=== PATIENT | male | born 1960 | race Caucasian/White ===

== ENCOUNTER 2022-04-04 08:39 | Inpatient (IN) | payer MEDICARE ==
[2022-04-04] MEDS ORDERED: Metoprolol Tartrate 5 MG/5 ML VIAL ONE ×2 (09:12→09:24)
[2022-04-04 09:17] LABS: #Eosinphils 0.1 10x3/uL (0.0-0.5); #Monocytes 0.7 10x3/uL (0.0-1.1); #Neutrophils 2.6 10x3/uL (1.5-8.4); %Basophils 0.8 % (0.0-2.0); %Eosinophils 2.2 % (0.0-6.0); %Lymphocytes 32.3 % (18.0-47.0); %Monocytes 13.8 % (0.0-10.0); %Neutrophils 50.7 % (40.0-75.0); Hemoglobin 15.6 g/dL (13.5-17.5); Mean Corpuscular Hemoglobin 31.9 pg (27.0-33.0); Mean Corpuscular Volume 96.7 fl (81.2-95.1); Mean Platelet Volume 10.6 fl (7.4-10.4); Platelet Count 234 10x3/uL (150-450); RBC Distribution Width 14.6 % (11.5-14.5); Red Blood Cell (RBC) Count 4.89 10x6/uL (4.32-5.72); White Blood Cell (WBC) Count 5.1 10x3/uL (3.5-10.5)
[2022-04-04] MEDS ORDERED: Magnesium 2 GM/50 ML BAG (IN WATER) ONE (09:19)
[2022-04-04 09:30] LABS: ALT (SGPT) 18 U/L (8-55); AST (SGOT) 16 U/L (5-34); Albumin 3.9 g/dL (3.4-4.8); Alkaline Phosphatase 48 U/L (40-110); Anion Gap 13 mmol/L (10-20); BUN (Urea Nitrogen) 17 mg/dL (8.4-25.7); Calc. Creatinine Clearance 0 mL/min (70-130); Calcium 8.8 mg/dL (7.8-10.44); Carbon Dioxide 21 mmol/L (23-31); Chloride 110 mmol/L (98-107); Estimated GFR 76; Globulin 2.7 g/dL (2.4-3.5); Glucose 109 mg/dL (80-115); Lipase 27 U/L (8-78); Potassium 4.3 mmol/L (3.5-5.1); Protein, Total 6.6 g/dL (5.8-8.1); Sodium 140 mmol/L (136-145)
[2022-04-04] MEDS ORDERED: Diltiazem 125 MG in Sodium Chloride 0.9% 100 ML IVPB SCH (10:15)
[2022-04-04] MEDS ORDERED: Acetaminophen 325 MG TAB PO PRN ×2 (11:30→21:41)
[2022-04-04] MEDS ORDERED: Acetaminophen 650 MG Suppository PR PRN ×2 (11:30→21:41)
[2022-04-04] MEDS ORDERED: Flecainide 50 MG TAB PO SCH (12:00)
[2022-04-04 12:21] LABS: Magnesium 2.2 mg/dL (1.6-2.6)
[2022-04-04 14:52] LABS: SARS-CoV-2 NAA Rapid Test Not Detected (NotDetected)
[2022-04-04 15:41] LABS: Troponin I 0.015 ng/mL (< 0.028)
[2022-04-04 17:30] VITALS: BMI 30.2
[2022-04-04] MEDS ORDERED: Diltiazem 125 MG, Admixture Fee 1 EACH in Sodium Chloride 0.9% 100 ML IVPB SCH ×2 (17:30→21:45)
[2022-04-04] MEDS ORDERED: Apixaban 5 MG TAB PO SCH ×2 (21:00→21:45)
[2022-04-04] MEDS ORDERED: Lorazepam 0.5 MG TAB PO SCH (22:45)
[2022-04-04] MEDS ORDERED: Atorvastatin Calcium 10 MG TAB PO SCH (22:45)
[2022-04-05 03:51] LABS: #Eosinphils 0.1 10x3/uL (0.0-0.5); #Neutrophils 5.1 10x3/uL (1.5-8.4); %Basophils 0.4 % (0.0-2.0); %Eosinophils 0.8 % (0.0-6.0); %Lymphocytes 20.3 % (18.0-47.0); %Monocytes 12.9 % (0.0-10.0); %Neutrophils 65.3 % (40.0-75.0); Hemoglobin 14.3 g/dL (13.5-17.5); Mean Corpuscular Hemoglobin 31.3 pg (27.0-33.0); Mean Corpuscular Volume 97.8 fl (81.2-95.1); Platelet Count 216 10x3/uL (150-450); RBC Distribution Width 14.5 % (11.5-14.5); Red Blood Cell (RBC) Count 4.57 10x6/uL (4.32-5.72); White Blood Cell (WBC) Count 7.8 10x3/uL (3.5-10.5)
[2022-04-05 04:05] LABS: Anion Gap 18 mmol/L (10-20); BUN (Urea Nitrogen) 19 mg/dL (8.4-25.7); Calc. Creatinine Clearance 97 mL/min (70-130); Calcium 8.5 mg/dL (7.8-10.44); Carbon Dioxide 17 mmol/L (23-31); Chloride 109 mmol/L (98-107); Estimated GFR 72; Glucose 85 mg/dL (80-115); Potassium 5.2 mmol/L (3.5-5.1); Sodium 139 mmol/L (136-145)
[2022-04-05 05:00] VITALS: BP 97/66; TEMP 98.5
[2022-04-05] MEDS ORDERED: Apixaban 5 MG TAB PO SCH (09:00)
[2022-04-05] MEDS ORDERED: Fentanyl 100 MCG/2 ML VIAL ONE (11:36)
[2022-04-05] MEDS ORDERED: Midazolam HCl 2 mg/2 ml Vial ONE ×2 (11:37→11:50)
[2022-04-05] MEDS ORDERED: Midazolam HCl 2 mg/2 ml Vial IVP SCH (13:30)
[2022-04-05] MEDS ORDERED: Fentanyl 100 MCG/2 ML VIAL SLOW IVP SCH (13:30)
[2022-04-05] MEDS ORDERED: Amiodarone 200 MG TAB PO SCH (14:00)
[2022-04-06] MEDS ORDERED: Amiodarone 200 MG TAB PO SCH (09:00)
== END 2022-04-05 16:00 | disposition home or self-care (01) | DRG 309 ==
LOC: CSHERS 08:39 → UNDOADMIN 12:42 → CSHTELE 12:42 → CSHIMCU 17:24
PROVIDERS: ADMIT Internal Medicine; ATTEND Internal Medicine
PROC: 5A2204Z Restoration of Cardiac Rhythm, Single (ICD-10-PCS; principal; 2022-04-05)
DX: I48.0 Paroxysmal atrial fibrillation (principal); I50.22 Chronic systolic (congestive) heart failure; E78.5 Hyperlipidemia, unspecified; F41.9 Anxiety disorder, unspecified; K21.9 Gastro-esophageal reflux disease without esophagitis; I11.0 Hypertensive heart disease with heart failure; Z98.890 Other specified postprocedural states; Z79.01 Long term (current) use of anticoagulants; Z79.899 Other long term (current) drug therapy; Z82.3 Family history of stroke; Z20.822 Contact with and (suspected) exposure to COVID-19
CPT/HCPCS: 36415; 71045; 80048; 80053; 83690; 83735; 84484; 85025; 93005; 93306; 94760; 96365; 96366; 96367; 96375; J2250; J3010; J3475; J3490; U0002